=== PATIENT | male | born 1955 | race Caucasian/White ===

== ENCOUNTER 2020-09-13 13:27 | Outpatient (CLI) | payer MEDICARE, OTHER, SELFPAY ==
--- NOTE | ~2020-09-13 | MR_ITS ---
EXAMINATION: MR knee RT wo con DATE: 09/13/2020 14:23 INDICATION: Right knee pain TECHNIQUE: Magnetic resonance imaging (MRI) of the right knee was performed without intravenous contr ast. Sequences included coronal PD-weighted FSE, coronal PD-weighted FS FSE, sagittal T2-weighted FS E, sagittal PD-weighted FS FSE and axial PD weighted fat saturated FSE. COMPARISON: None. FINDINGS: Medial compartment: Medial meniscus is normal. Articular cartilage is normal. Lateral compartment: Likely complex tear of the lateral meniscus with a longitudinal horizontal component extending to the inferior articular surface extending from the posterior horn anteriorly across the body into the ant erior horn. There appears to be a second tear plane extending to contact the superior articular surfa ce at the lateral aspect of the posterior horn. There is a more macerated appearance to the posterior inferior aspect of the meniscus at the junction of the body and posterior horn which appears thicken ed with amorphous diffuse increased signal. Parameniscal cyst extending along the periphery of the an terior horn which measures 2.0 cm in medial to lateral length and 5 x 6 mm maximal orthogonal dimensi ons. Partial-thickness cartilage loss with chondral surface irregularity along the posterior and late ral aspects of the lateral tibial plateau. Mild subarticular edema along the lateral rim of the later al tibial plateau. More preserved cartilage thickness with deep fissuring along the medial aspect of the lateral tibial plateau along the shoulder the intercondylar eminence. Additional deep chondral fi ssuring along the anterior to central weightbearing lateral femoral condyle and along its posterior m ost margin. Patellofemoral compartment: Deep chondral ulceration with underlying subarticular edema at the cephalad aspect of the lateral pat ellar facet. Additional deep chondral fissure without degenerative subchondral changes at the central aspect of the trochlear groove. Partial-thickness chondral fissure involving up to 50% the cartilage thickness at the medial patellar facet. Ligaments and tendons: Anterior and posterior cruciate ligaments are normal. The medial collateral ligament and fibular tara ateral ligament complex are normal. Mild enthesopathy with moderate size enthesophyte at the patellar insertion of the distal quadriceps tendon. A couple bands of magic angle artifact extending across t he normal patellar tendon. The visualized medial and lateral hamstring tendons as well as the iliotib ial band are normal. Fluid: Moderate-sized knee joint effusion at the suprapatellar pouch. No loose osteochondral bodies identifi ed. Small Vazquez's cyst. Osseous/other: Normal marrow signal. No fracture or abnormal marrow replacing process. IMPRESSION: 1. Complex lateral meniscal tear. 2. 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 2. Moderate-sized right knee joint effusion with small Vazquez's cyst. Reviewed, dictated and finalized at location A. IMPRESSION: 1. Complex lateral meniscal tear. 2. Mild lateral and patellofemoral compartment osteoarthritis with regions of h igh to moderate grade chondromalacia. 2. Moderate-sized right knee joint effusion with small Vazquez's cyst.
== END 2020-09-13 13:28 | disposition home or self-care (01) ==
PROVIDERS: PCP Internal Medicine; Visit Provider Orthopaedic Surgery
DX: S83.271A Complex tear of lateral meniscus, current injury, right knee, initial encounter (principal); M71.21 Synovial cyst of popliteal space [Baker], right knee; M17.11 Unilateral primary osteoarthritis, right knee; M25.461 Effusion, right knee; M22.41 Chondromalacia patellae, right knee
CPT/HCPCS: 73721

== ENCOUNTER → 2020-10-13 01:04 | Outpatient (CLI) | payer MEDICARE, OTHER, SELFPAY ==
[2020-10-13 20:46] LABS: SARS-CoV-2 RNA PCR Negative
== END ==
PROVIDERS: PCP Internal Medicine; Visit Provider Orthopaedic Surgery
DX: Z01.812 Encounter for preprocedural laboratory examination (principal); Z20.822 Contact with and (suspected) exposure to COVID-19
CPT/HCPCS: C9803; U0003; U0005

== ENCOUNTER 2020-10-16 00:58 | Day surgery (SDC) | payer MEDICARE, OTHER, SELFPAY ==
[2020-10-08 12:54] VITALS: BMI 30.3
--- NOTE | 2020-10-15 14:45 | WPDANESEPPF ---
Anes - Initial Pre Proc Eval Procedure: Operation Date: 10/16/20 09:00 Proposed Procedures p Right Knee Arthroscopy, Proceed As Indicated - Alfred Shah MD Date/Time: 10/15/20 14:45 Surgeon: Alfred Shah MD Pre Op Diagnosis: Right knee lateral mensicus tear Patient Data Age: 65 Gender: M Height: 1.83 m Weight: 101.36 kg Allergies Allergy/AdvReac Type Severity Reaction Status Date / Time phenylephrine AdvReac Unknown INCREASED Verified 10/08/20 12:47 BLOOD PRESSURE Home Medications Medication Instructions Recorded Confirmed Type atorvastatin 40 mg tablet 40 mg PO QAM 08/29/19 10/16/20 History clopidogrel 75 mg tablet 75 mg PO DAILY 08/29/19 10/16/20 History losartan 100 1 tablet PO DAILY 08/29/19 10/16/20 History mg-hydrochlorothiazide 12.5 mg tablet verapamil 240 mg 24 hr 240 mg PO DAILY 08/29/19 10/16/20 History capsule,extended release empagliflozin 25 mg tablet 25 mg PO DAILY #90 tablet 09/07/20 10/16/20 Rx insulin aspart U-100 100 unit/mL See Rx Instructions SUB-Q TID #110 09/07/20 10/16/20 Rx subcutaneous solution ml insulin lispro 100 unit/mL 120 unit CONTINUOUS SUBCUTANEOUS 09/15/20 10/16/20 Rx subcutaneous solution INFUSION DAILY 90 Days #108 ml chlorhexidine gluconate 4 % 1 applic TOPICAL ONCE #237 ml 09/22/20 10/16/20 Rx topical liquid blood sugar diagnostic #300 ea 10/08/20 Rx Patient hx anesthesia problems: none Family hx anesthesia problems: none PMFSH Past Medical History Medical History (Updated 10/15/20 @ 14:47 by John Yoon MD) CAD (coronary artery disease) Cellulitis Claustrophobia Diabetes Heart disease High cholesterol Hx of myocardial infarction Hypertension Metabolic syndrome Obesity MARIANGEL (obstructive sleep apnea) Presence of insulin pump Proteinuria Right knee pain Type 2 diabetes mellitus with hyperglycemia Surgical History Surgical History History of cataract surgery History of left knee surgery History of quadruple bypass History of vitrectomy Family History Family History Other Diabetes mellitus Heart disease Hypertension Prediabetes Social History Social History Smoking packs per day: 1.5 Smoking cigarettes per day: 30.0 Years smoked: 1 Smoking pack-years: 1.50 Smoking status: Former smoker Tobacco type: cigarettes Smoking end date: 06/19/76 Additional smoking assessment comments: [place] QUIT 1977 Alcohol intake: never Substance use: never Substance use type: does not use Living arrangements: with family Gender identity (if verbalized by the patient): Male Spiritual care concerns: No Anes - Eval Final PreProcedure Day of Procedure 10/15/20 14:45 Patient weight: obese Heart: regular rate and rhythm Lungs: clear to auscultation and normal air movement Airway: Mallampati scale class II Neurological: alert and oriented Last oral intake: >/= 8 hours ASA classification: III Emergent: no Anesthetic plan: proceed Anesthesia type and monitoring: general LMA Informed Consent: The patient's anesthetic plan and its attendant risks and benefits were discussed with the patient/family/POA. Questions were solicited and answers provided to the satisfaction of the patient/family/POA.
[2020-10-16] VITALS (9 sets, daily range): BP systolic 122–153; BP diastolic 68–80; PULSE 64–78; RESP 13–20; TEMP 36.1–36.2; O2SAT 92–100
[2020-10-16] MEDS: CELECOXIB 200 MG CAPSULE PO (07:43)
[2020-10-16] MEDS: ACETAMINOPHEN 500 MG TABLET 1000 MG PO (07:43)
--- NOTE | 2020-10-16 07:54 | WPDHPUPDATE1 ---
History and Physical Update Update Date/Time: 10/16/20 07:54 History and Physical has been reviewed, including an updated exam of the patient. There are NO changes in the patient's condition. Risks, benefits, and alternatives have been discussed and questions answered. Patient agrees to proceed with procedure.
[2020-10-16] MEDS: LACTATED RINGERS 1,000 ML 30 ML IV CONT ×2 (08:04→11:05)
[2020-10-16 08:15] LABS: Glucose Point of Care 181 (65-105)
[2020-10-16] MEDS: ceFAZolin 2 GM/D5W 50 ML 2 GM/50 ML BAG IVPB (09:32)
[2020-10-16] MEDS: BUPIVACAINE HCL 0.5% PF 30 ML VIAL INFILTRATE (09:57)
--- NOTE | 2020-10-16 11:04 | P.OP_ITS ---
Procedure Note - Detailed Date of procedure: 10/16/20 Pre-op diagnosis: Right knee lateral mensicus tear Post-op diagnosis: same Procedure performed: RIGHT KNEE SCOPE WITH PARTIAL LATERAL MENISCECTOMY AND MAJOR SYNOVECTOMY Description of procedure: PATIENT WAS TAKEN TO THE OR. RIGHT LEG WAS PREPPED AND DRAPED STERILE. TROCARS WERE PLACED IN THE USUAL FASHION. CAMERA WAS INTRODUCED. THERE WAS GRADE 3VCHONDROMALACIA TO THE PATELLA FEMORAL JOINT. THERE WAS A LOT OF SYNOVITIS IN ALL COMPARTMENTS. THE MEDIAL COMPARTMENT SHOWED CHONDROMALACIA TO THE MED FEMORAL CONDYLE. A SHAVER WAS USED TO PREFORM A CHONDROPLASTY. THERE WAS NO MEDIAL MENISCUS TEAR. THE ACL WAS INTACT. THE LATERAL MENISCUS WAS TORN AT THE MAIN LATERAL SUBSTANCE AND AT THE ANTERIOR HORN AND UNDERWENT RESECTION OF ABOUT 25 % THE LATERAL FEMORAL CONDYLE SHOW A CHONDR AL DEFECT AND UNDERWENT CHONDROPLASTY. A SYNOVECTOMY WAS PREFORMED. THE PATELLO FEMORAL JOINT UNDERWENT CHONDROPLASTY. SYNOVECTOMY WAS PREFORMED IN THE SUPERIOR MEDIAL COMPARTMENT. THE WOUNDS WERE APPROXIMATED WITH 4.0 NYLON. STERILE DRESSING WAS APPLIED. PATIENT WAS EXTUBATED. Anesthesia: GLMA Surgeon: Alfred Shah MD Estimated blood loss (mL): 5 Complications: No immediate complications Condition: stable Disposition: PACU
[2020-10-16 11:25] LABS: Glucose Point of Care 212 (65-105)
[2020-10-16] MEDS: fentaNYL CITRATE INJ (*CRX) 100 MCG/2 ML VIAL 25 MCG IV PUSH ×2 (11:33→11:40)
== END 2020-10-16 13:40 | disposition home or self-care (01) ==
PROVIDERS: PCP Internal Medicine; Visit Provider Orthopaedic Surgery
PROC: (CPT 29870; principal; 2020-10-16 09:00)
DX: S83.271A Complex tear of lateral meniscus, current injury, right knee, initial encounter (principal); M65.9 Synovitis and tenosynovitis, unspecified; M22.41 Chondromalacia patellae, right knee; M23.91 Unspecified internal derangement of right knee; E11.9 Type 2 diabetes mellitus without complications; Z96.41 Presence of insulin pump (external) (internal); Z79.4 Long term (current) use of insulin; E78.00 Pure hypercholesterolemia, unspecified; I25.10 Atherosclerotic heart disease of native coronary artery without angina pectoris; Z95.1 Presence of aortocoronary bypass graft; I10 Essential (primary) hypertension; E66.9 Obesity, unspecified; Z68.30 Body mass index [BMI] 30.0-30.9, adult; G47.33 Obstructive sleep apnea (adult) (pediatric); I25.2 Old myocardial infarction; Z79.02 Long term (current) use of antithrombotics/antiplatelets; Z87.891 Personal history of nicotine dependence; X58.XXXA Exposure to other specified factors, initial encounter; Y93.9 Activity, unspecified; Y92.9 Unspecified place or not applicable; Y99.9 Unspecified external cause status
CPT/HCPCS: 29881; 29876; 82948; A9270; J0690; J1100; J2250; J2405; J2704; J3010; J7120

== ENCOUNTER 2022-02-25 13:07 | Outpatient (CLI) | payer MEDICARE, OTHER, SELFPAY ==
--- NOTE | ~2022-02-25 | XR_ITS ---
EXAMINATION: XR lg joint inject/asp w image DATE: 02/25/2022 14:03 INDICATION: Right hip arthritis. TECHNIQUE: A time-out was performed to verify the patient's name, date of , and procedure to b e performed. The procedure including the risks, benefits, and alternatives was discussed with the pat ient. Risks discussed included bleeding and infection. The patient understood the risks and agreed to proceed. The skin overlying the right hip joint was prepped and draped in usual sterile fashion. A nesthetic was administered with 1% lidocaine subcutaneously. A 22 G needle was advanced under fluoro scopic guidance into the joint. Subsequently, injectate consisting of 2 mL 0.5% bupivacaine and 1 mL 80 mg/mL Depo-Medrol was instilled. The needle was removed and the entry site was cleaned and dress ed. There were no immediate complications. Fluoroscopy exposure time was 0.0 minutes. The total numb er of images was 1. FINDINGS: Real-time fluoroscopy demonstrates the needle in the right hip joint. Patient's pain prior to procedure:0/10. IMPRESSION: 1. Fluoroscopy guided right hip joint injection of local anesthetic and steroid. Reviewed, dictated and finalized at location A. IMPRESSION: 1. Fluoroscopy guided right hip joint injection of local anesthetic and steroi d.
== END 2022-02-25 13:08 | disposition home or self-care (01) ==
LOC: ANHIMG 13:11
PROVIDERS: PCP Family Medicine; Visit Provider Orthopaedic Surgery
DX: M16.11 Unilateral primary osteoarthritis, right hip (principal)
CPT/HCPCS: 20610; 77002; J1040